=== PATIENT | male | born 1995 | race African-American/Black ===

== ENCOUNTER → 2019-10-26 | Outpatient (CLI) | payer OTHER ==
--- NOTE | 2019-10-26 14:06 | RAD ---
Exam: Right Upper Quadrant Ultrasound 10/26/2019 1:00 PM Indication: Reason: RUQ PAIN / Spl. Instructions: / History: Technique: Multiple realtime grayscale sonographic images were obtained over the abdomen. Static images were submitted for interpretation. Comparisons: None Findings: The pancreas is poorly visualized. The IVC is poorly visualized. The liver is normal in size measuring 13 cm longitudinally. There is a normal hepatic echotexture. No focal lesions are identified. The gallbladder is nondistended. There is no evidence for cholelithiasis. There is no wall thickening, or pericholecystic fluid. The common bile duct is within normal limits measuring 2 mm in diameter. Portions of the right kidney obscured from view. Visualized right kidney is unremarkable in appearance. The right kidney is normal in size measuring 11.2 x 5.2 x 6.3 cm. There is no identified mass, nephrolithiasis, or hydronephrosis Impression: No sonographic evidence of acute intra-abdominal abnormality Electronically signed by: Jonh Li MD (10/26/2019 2:03 PM) [id number]
== END | disposition home or self-care (01) ==
LOC: US 12:30
PROVIDERS: ATTEND Preventive Medicine Occupational Medicine
DX: R10.11 Right upper quadrant pain (principal)
CPT/HCPCS: 76705

== ENCOUNTER → 2020-02-17 | Outpatient (CLI) | payer OTHER ==
--- NOTE | 2020-02-17 14:58 | RAD ---
3 views left wrist without comparison for left wrist pain. FINDINGS: There is an intra-articular avulsion fracture of the base of the fifth metacarpal along its thenar aspect, with the fracture fragment being displaced anteriorly and centrally between the fourth and fifth metacarpals. There appears to be an old healed deformity of the base of the fourth metacarpal, and this fracture may not be acute, though it does have some poorly corticated margins suggesting incomplete healing. No other fracture or acute osseous abnormality is seen. Joints and soft tissues are unremarkable. IMPRESSION: 1. Displaced intra-articular fracture of the thenar aspect of the base of the fifth metacarpal as described. Given the associated healed deformity of the base of the fourth metacarpal, this fifth metacarpal fracture is age indeterminate but does lack discretely corticated margins which suggests acuity. Electronically signed by: Sergio Carias MD (02/17/2020 2:55 PM) [id number]
== END ==
LOC: DXRAD 12:37
PROVIDERS: ATTEND Physician Assistant
DX: S62.317A Displaced fracture of base of fifth metacarpal bone, left hand, initial encounter for closed fracture (principal); X58.XXXA Exposure to other specified factors, initial encounter; Y93.89 Activity, other specified; Y92.89 Other specified places as the place of occurrence of the external cause; Y99.8 Other external cause status
CPT/HCPCS: 73110